=== PATIENT | male | born 1980 | race Caucasian/White ===

== ENCOUNTER → 2016-11-28 | Outpatient (CLI) | payer BC, OTHER ==
[~2016-11-28] MED LIST: IBUP-1780 PO
--- NOTE | 2016-11-29 11:41 | Diagnostic Imaging Report ---
Thyroid scan and uptake Technique: After the oral administration of 196 ?Ci of I-123 capsule, 4 hour and 24-hour uptake is measured and plantar images over the thyroid gland obtained. Indication: Hyperthyroidism FINDINGS: Thyroid uptake at 4 hours is 120 %, and the at 24 hours is 114 %. This is obviously artifactual retroflexed close to 100% uptake. Planar images demonstrate no evidence of a cold or hot nodule. IMPRESSION: Severe hyperthyroidism. Dictated by: Dictated on workstation # [id number]
== END ==
LOC: CARD 10:51
DX: E05.90 Thyrotoxicosis, unspecified without thyrotoxic crisis or storm (principal)
CPT/HCPCS: 78014